=== PATIENT | female | born 1975 | race Caucasian/White ===

== ENCOUNTER → 2017-10-15 | Outpatient (CLI) | payer OTHER ==
[~2017-10-15] MED LIST: HYDR5TAB27 PO; LEVO-645 PO; LEVO125T72 PO
--- NOTE | 2017-10-19 07:48 | MAMMOGRAPHY REPORT ---
BILATERAL DIGITAL SCREENING MAMMOGRAM TOMOSYNTHESIS WITH CAD: 10/15/2017 CLINICAL HISTORY: Baseline examination. Patient has no complaints. TECHNIQUE: Breast tomosynthesis in addition to standard 2D mammography was performed. Current study was also evaluated with a Computer Aided Detection (CAD) system. COMPARISON: No prior exams were available for comparison. BREAST COMPOSITION: The tissue of both breasts is heterogeneously dense, which may obscure small mas ses. FINDINGS: There is an 8 mm asymmetry seen within the left superior posterior breast on the MLO view o nly, not clearly evident on the cc view, which may represent normal overlapping fibroglandular tissue although spot compression tomosynthesis views and possible breast ultrasound are recommended for fur ther evaluation given no priors to document stability. Additionally, there are possible grouped calc ifications within the right medial breast, for which spot magnification views are recommended. The remainder of both breasts are negative, without suspicious masses, calcifications, or areas of ar chitectural distortion noted. IMPRESSION: ACR BI-RADS CATEGORY 0: INCOMPLETE EVALUATION: NEED ADDITIONAL IMAGING EVALUATION Left breast asymmetry and possible right breast calcifications, for which additional imaging evaluati on is recommended. The patient will be called to schedule an appointment. Approximately 10% of breast cancers are not detected with mammography. A negative mammographic report should not delay biopsy if a clinically suggestive mass is present. Jennifer Toscano M.D. /:10/15/2017 16:25:37 Tip Cutter: Mikhail Marques M, [facility] letter sent: Addl Imaging 0 BI-RADS Code: ACR BI-RADS Category 0: Incomplete Evaluation: Need Additional Imaging Evaluation
== END | disposition home or self-care (01) ==
LOC: C.MAMM 13:39
PROVIDERS: ATTEND Family Medicine
DX: Z12.31 Encounter for screening mammogram for malignant neoplasm of breast (principal); N64.89 Other specified disorders of breast

== ENCOUNTER → 2017-10-28 | Outpatient (CLI) | payer OTHER ==
--- NOTE | 2017-10-28 15:08 | MAMMOGRAPHY REPORT ---
BILATERAL DIGITAL DIAGNOSTIC MAMMOGRAM TOMOSYNTHESIS AND TARGETED LEFT ULTRASOUND: 10/28/2017 CLINICAL HISTORY: 42-year-old woman callback from screening mammography for possible microcalcificati ons in the medial right breast, and asymmetry in the superior posterior left breast on the MLO view. Due to family history of breast cancer, patient estimated her lifetime risk of developing cancer of 22-24%. She has an upcoming appointment with genetic counseling and is debating genetic testing. TECHNIQUE: Spot magnification right CC, ML; tomosynthesis ML and spot compression MLO views of the le ft breast were obtained. COMPARISON: Comparison is made to exam dated: 10/15/2017 mammogram - [facility]. BREAST COMPOSITION: The tissue of both breasts is heterogeneously dense, which may obscure small mas ses. FINDINGS: The tomosynthesis mediallateral, and spot compression MLO views of the left breast demonst rate partial effacement of the asymmetry with questionable architectural distortion in the superior p osterior left breast. Currently, there is no definite focal area of distortion, obvious mass or susp icious calcifications. Further evaluation with ultrasound was performed given the heterogeneously de nse breasts. The spot magnification views of the right breast demonstrate 1-2 scattered punctate microcalcificatio ns, without evidence of a suspicious grouping or cluster of microcalcifications. This finding is con sidered benign and no further workup is needed at this time. Targeted ultrasound was performed in the superior left breast in the upper outer, upper inner and ret roareolar axes. Sonographically normal tissue is seen without a suspicious solid or cystic mass. IMPRESSION: ACR-BI-RADS CATEGORY 3: PROBABLY BENIGN, TARGETED ULTRASOUND ACR-BI-RADS CATEGORY 3: PRO BABLY BENIGN 1. There are no suspicious grouped or clustered microcalcifications in the medial right breast on th e current spot magnification views. No further workup is needed at this time. 2. There is partial effacement of the asymmetry and questionable distortion in the superior posterio r left breast on the MLO view with additional supplemental tomosynthesis images, and no suspicious so nographic correlate was identified. This most likely represents normal fibroglandular tissue althoug h a short interval follow-up left diagnostic tomosynthesis mammogram and possible ultrasound is recom mended to ensure stability in 6 months, given that this was identified on a baseline mammogram. 3. The patient reports her lifetime risk of developing breast cancer at 22-24%, in which she would q ualify for screening breast MRI as well. These results and recommendations were discussed with the patient at the time of the exam. Approximately 10% of breast cancers are not detected with mammography. A negative mammographic report should not delay biopsy if a clinically suggestive mass is present. Jenna Thurston M.D. ay/:10/28/2017 10:51:15 Hair And Makeup Designer: Yohana JUÁREZ)(Nicole), [facility] letter sent: Follow Up Recommended 3 BI-RADS Code: ACR-BI-RADS Category 3: Probably Benign Ultrasound BI-RADS: ACR-BI-RADS Category 3: Pr obably Benign
== END | disposition home or self-care (01) ==
LOC: C.MAMM 08:04
PROVIDERS: ATTEND Family Medicine
DX: N64.9 Disorder of breast, unspecified (principal)